=== PATIENT | male | born 2000 | race Caucasian/White ===

== ENCOUNTER 2024-02-14 19:10 | Emergency (ER) | payer MEDICAID, OTHER ==
[~2024-02-14] VITALS: Ht 182.9 cm; Wt 77.3 kg
[2024-02-14 19:38] VITALS: BP 137/95; PULSE 105; RESP 16; TEMP 98.3; O2SAT 98
[2024-02-14] MEDS ORDERED: IBUP-1456 PO (23:00)
== END 2024-02-14 23:21 | disposition home or self-care (01) ==
LOC: ER 19:10
DX: S93.402A Sprain of unspecified ligament of left ankle, initial encounter (principal); F17.210 Nicotine dependence, cigarettes, uncomplicated; F12.10 Cannabis abuse, uncomplicated; X50.9XXA Other and unspecified overexertion or strenuous movements or postures, initial encounter; Y93.89 Activity, other specified; Y92.89 Other specified places as the place of occurrence of the external cause; Y99.8 Other external cause status
CPT/HCPCS: 73610